=== PATIENT | female | born 1965 | race African-American/Black ===

== ENCOUNTER 2017-05-03 17:07 | Inpatient (IN) | payer OTHER ==
[2017-05-03] MEDS ORDERED: SODIUM CHLORIDE 1,000 ML IV STA (17:42)
[2017-05-03] MEDS ORDERED: ACETAMINOPHEN 1000 MG/100 ML VIAL (NON FORMULARY) IVPB ONE (17:45)
[2017-05-03] MEDS ORDERED: VANCOMYCIN 1,000 MG in DEXTROSE 5%-WATER - 250 ML IVPB ONE (17:47)
--- NOTE | 2017-05-03 17:53 | PDOC ---
History of Present Illness - General Chief Complaint: Abscess Boil Stated Complaint: PCP SENT Time Seen by Provider: 05/03/17 17:33 History Source: Patient Exam Limitations: No Limitations - History of Present Illness Initial Comments: 05/03/17 17:51 52-year-old female presents to the ED with complaints of worsening right upper abdominal abscess which she states started earlier this week and has progressively gotten worse in the point that she has a fever and has pain with movement. Patient states was told by her PCP Dr. Isai Parham to come to the ER. Patient denies history of diabetes but does state history of gastric bypass in 2000.. Patient states the bump was over the incision which she denies manipulation or irritation of. Patient denies radiation of pain, change in bowel pattern, chest pain, shortness of breath. Timing/Duration: getting worse Severity: moderate Associated Symptoms: reports: fever/chills Past History - Travel Traveled outside of the country in the last 30 days: No - Past Medical History Allergies/Adverse Reactions: Allergies Allergy/AdvReac Type Severity Reaction Status Date / Time tree nut Allergy Severe Hives Verified 05/03/17 17:13 No Known Drug Allergies Allergy Verified 05/03/17 17:13 fish Allergy Severe Hives Uncoded 05/03/17 17:13 Home Medications: Ambulatory Orders Rizatriptan Benzoate [Maxalt] 10 mg PO PRN #0 tablet 10/30/11 Amlodipine Besylate [Norvasc -] 10 mg PO DAILY 06/23/12 Benazepril HCl 20 mg PO DAILY 06/23/12 Oxycodone HCl/Acetaminophen [Percocet 5-325 mg Tablet] 1 - 2 tab PO Q6H PRN #12 tablet 08/04/12 Albuterol 0.083% Nebulizer Suellen [Ventolin 0.083% Nebulizer Soln -] 1 neb NEB Q4H PRN 10/31/15 Albuterol Sulfate Inhaler - [Ventolin HFA Inhaler -] 2 inh PO Q4H PRN 10/31/15 Biotin 1 mg PO BID 10/31/15 Buspirone HCl [Buspar -] 30 mg PO BID 10/31/15 Butalb/Acetaminophen/Caffeine [Bhjuac-Prvakaox-Yonx 50-325-40] 1 each PO ASDIR PRN 10/31/15 Calcium Carbonate/Vitamin D3 [Calcium 600-Vit D3 200 Tablet] 1 each PO BID 10/30 Cetirizine HCl 10 mg PO DAILY 10/31/15 Cyclobenzaprine HCl [Flexeril -] 5 mg PO TID PRN 10/31/15 Diclofenac Sodium 100 gm TP BID 10/31/15 Diphenhydramine HCl [Benadryl Capsule -] 25 mg PO BID PRN 10/31/15 Hydrochlorothiazide [Hctz -] 25 mg PO DAILY 10/31/15 Losartan Potassium [Cozaar -] 50 mg PO DAILY 10/31/15 Montelukast Na [Singulair -] 10 mg PO HS 10/31/15 Topiramate 50 mg PO BID 10/31/15 Trazodone HCl [Desyrel -] 50 mg PO TID 10/31/15 Famotidine [Pepcid] 20 mg PO BID #60 tablet 01/04/16 Oxycodone HCl/Acetaminophen [Percocet 5-325 mg Tablet] 1 - 2 tab PO Q6H #20 tab MDD 4 01/04/16 Anemia: Yes Asthma: Yes (USES INHALERS) Cancer: No Cardiac Disorders: No CVA: No COPD: Yes CHF: No Dementia: No Diabetes: No GI Disorders: No Disorders: No HTN: Yes Hypercholesterolemia: No Liver Disease: No Seizures: No Thyroid Disease: No - Surgical History Abdominal Surgery: Yes (GASTRIC BY-PASS 2000) Appendectomy: No Cardiac Surgery: No Cholecystectomy: No Lung Surgery: No Neurologic Surgery: No Orthopedic Surgery: No - Immunization History Td Vaccination: Yes TDAP Vaccination: Yes Immunization Up to Date: Yes - Suicide/Smoking/Psychosocial Hx Smoking Status: No Smoking History: Never smoked Years of Tobacco Use: 0 Have you smoked in the past 12 months: No Number of Cigarettes Smoked Daily: 0 Cigars Per Day: 0 Information on smoking cessation initiated: No Hx Alcohol Use: No Drug/Substance Use Hx: No Substance Use Type: None Hx Substance Use Treatment: No Patient Lives Alone: No Lives with/in: spouse/SO Review of Systems - Review of Systems Able to Perform ROS?: Yes Constitutional: Yes: Chills, Fever, Weakness HEENTM: No: Symptoms Reported Respiratory: No: Symptoms reported Cardiac (ROS): No: Symptoms Reported ABD/GI: Yes: Abdominal Distended. No: Nausea : No: Symptoms Reported Musculoskeletal: No: Symptoms Reported Integumentary: Yes: Erythema, Lumps Neurological: No: Symptoms reported Endocrine: No: Symptoms Reported Hematologic/Lymphatic: No: Symptoms Reported *Physical Exam - Vital Signs Last Vital Signs Temp Pulse Resp BP Pulse Ox 100.6 F H 100 H 16 171/93 99 05/03/17 17:13 05/03/17 17:13 05/03/17 17:13 05/03/17 17:13 05/03/17 17:13 - Physical Exam General Appearance: Yes: Nourished, Appropriately Dressed. No: Apparent Distress HEENT: positive: EOMI, Pharynx Normal. negative: Pale Conjunctivae Neck: positive: Supple Respiratory/Chest: positive: Lungs Clear, Normal Breath Sounds. negative: Respiratory Distress, Accessory Muscle Use Cardiovascular: positive: Regular Rhythm, Tachycardia. negative: Murmur Gastrointestinal/Abdominal: positive: Normal Bowel Sounds, Other (Noted 3 cm raised fluctuant warm erythematous mass to the right upper quadrant and surrounding skin erythematous measuring 10 x 12 cm. No drainage noted from Center mass. ) Integumentary: positive: Erythema, Swelling Neurologic: positive: Motor Strength 5/5 (ambulatory) ED Treatment Course - LABORATORY CBC & Chemistry Diagram: 05/03/17 18:10 05/03/17 18:10 - RADIOLOGY Radiology Studies Ordered: Category Date Time Status ABDOMEN & PELVIS CT WITH CONTR [CT] Stat CT Scan 05/03/17 17:45 Ordered CHEST X-RAY PORTABLE* [RAD] Stat Radiology 05/03/17 17:42 Ordered Medical Decision Making - Medical Decision Making 05/03/17 17:56 Patient here for evaluation of worsening cellulitic tender mass to the right upper quadrant. Patient exam and arrival was found to be tachycardic and febrile concerning for sepsis. Patient with noted fluctuant masses center of right upper abdomen and unable to detectthe extent of abscess/mass. patient also ordered for IV Tylenol abdominal CT with by mouth and IV contrast along with surgical consult. Patient ordered for vancomycin and Zosyn for broad- spectrum coverage. 05/03/17 18:[address] Moore and is requesting Dr. Geoffrey Joseph for surgical consultation. *DC/Admit/Observation/Transfer Diagnosis at time of Disposition: Abdominal abscess, Sepsis - Discharge Dispostion Admit: Yes - Referrals - Patient Instructions - Post Discharge Activity
[2017-05-03] MEDS ORDERED: PIPERACILLIN/TAZOB 3.375 GM 3.375 GM in DEXTROSE 5%-WATER - 50 ML IVPB SCH (18:00)
[2017-05-03] MEDS ORDERED: VANCOMYCIN 1 GRAM (PRE-DOCKED) 1,000 MG/250 ML BAG IVPB ONE (18:19)
[2017-05-03] MEDS ORDERED: ACETAMINOPHEN INJECTION 100 ML IVPB ONE (18:19)
[2017-05-03] MEDS ORDERED: PIPERACILLIN/TAZOB 3.375 GM 3.375 GM/50 ML BAG IVPB ONE (18:20)
[2017-05-03 18:26] LABS: BASO % 0.4 % (0-2.0); EOS % 1.1 % (0-4.5); HEMATOCRIT 35.7 % (32.4-45.2); HEMOGLOBIN 11.6 GM/dL (10.7-15.3); LYMPH % 9.4 % (8-40); MCHC 32.4 g/dl (32.0-36.0); MEAN CELL VOLUME 86.6 fl (80-96); MEAN PLT VOLUME 8.5 fl (7.5-11.1); MONO % 12.5 % (3.8-10.2); NEUT % 76.6 % (42.8-82.8); PLATELET COUNT 290 K/MM3 (134-434); RBC 4.13 M/mm3 (3.60-5.2); RDW 13.5 % (11.6-15.6); WHITE BLOOD COUNT 11.1 K/mm3 (4.0-10.0)
[2017-05-03] MEDS ORDERED: LACTATED RINGERS SOLUTION 1000 ML INFUS.BAG IV ONE (18:30)
[2017-05-03 18:41] LABS: INR 1.24 (0.82-1.09)
[2017-05-03 18:44] LABS: ACTIVATED PTT 28.3 SECONDS (26.9-34.4)
[2017-05-03 18:55] LABS: URINE APPEARANCE CLEAR; URINE BILIRUBIN NEGATIVE (NEGATIVE); URINE BLOOD NEGATIVE (NEGATIVE); URINE COLOR LTYELLOW; URINE GLUCOSE (UA) NEGATIVE (NEGATIVE); URINE KETONE TRACE (NEGATIVE); URINE LEUK ESTERASE NEGATIVE (NEGATIVE); URINE NITRITE NEGATIVE (NEGATIVE); URINE PROTEIN NEGATIVE (NEGATIVE); URINE UROBILINOGEN 4.0 E.U/dl mg/dL (0.2-1.0)
--- NOTE | 2017-05-03 19:12 | PDOC ---
*Physical Exam - Vital Signs Last Vital Signs Temp Pulse Resp BP Pulse Ox 100.6 F H 100 H 16 171/93 99 05/03/17 17:13 05/03/17 17:13 05/03/17 17:13 05/03/17 17:13 05/03/17 17:13 ED Treatment Course - LABORATORY CBC & Chemistry Diagram: 05/03/17 18:10 05/03/17 18:10 - ADDITIONAL ORDERS Additional order review: Laboratory Results 05/03/17 05/03/17 05/03/17 18:10 18:10 18:10 PT with INR INR PTT (Actin FS) Sodium Cancelled Potassium Cancelled Chloride Cancelled Carbon Dioxide Cancelled Anion Gap Cancelled BUN Cancelled Creatinine Cancelled Creat Clearance w eGFR Cancelled Random Glucose Cancelled Lactic Acid 1.0 Calcium Cancelled Total Bilirubin Cancelled AST Cancelled ALT Cancelled Alkaline Phosphatase Cancelled Creatine Kinase Cancelled Troponin I Cancelled Total Protein Cancelled Albumin Cancelled Blood Type Cancelled Antibody Screen Cancelled 05/03/17 18:10 PT with INR 14.00 H INR 1.24 H PTT (Actin FS) 28.3 Sodium Potassium Chloride Carbon Dioxide Anion Gap BUN Creatinine Creat Clearance w eGFR Random Glucose Lactic Acid Calcium Total Bilirubin AST ALT Alkaline Phosphatase Creatine Kinase Troponin I Total Protein Albumin Blood Type Antibody Screen 05/03/17 18:10 RBC 4.13 MCV 86.6 MCHC 32.4 RDW 13.5 D MPV 8.5 Neutrophils % 76.6 Lymphocytes % 9.4 D Monocytes % 12.5 H D Eosinophils % 1.1 D Basophils % 0.4 - Medications Given in the ED: ED Medications Discontinued Medications Generic Name Dose Route Start Last Admin Trade Name Kishan PRN Reason Stop Dose Admin Acetaminophen 1,000 mg 05/03/17 17:45 05/03/17 18:20 Ofirmev Injection - IVPB 05/03/17 17:46 1,000 mg ONCE ONE Administration Sodium Chloride 1,000 mls @ 1,000 mls/hr 05/03/17 17:42 05/03/17 19:06 Normal Saline - IV 05/03/17 18:41 Not Given ASDIR STA Vancomycin HCl 1,000 mg/ 250 mls @ 250 mls/hr 05/03/17 17:47 05/03/17 19:08 Dextrose IVPB 05/03/17 18:46 250 mls/hr ONCE ONE Administration Protocol Lactated Ringer's 1,000 ml 05/03/17 18:30 05/03/17 19:07 Lactated Ringers Solution IV 05/03/17 18:31 1,000 ml ONCE ONE Administration Medical Decision Making - Medical Decision Making 05/03/17 19:12 Pt seen by the Advanced Practice Provider under my direct supervision Ancillary studies reviewed I agree with plan as outlined by the Advanced Practice Provider *DC/Admit/Observation/Transfer Diagnosis at time of Disposition: Abdominal abscess, Sepsis - Referrals Referrals: Isai Parham MD [Primary Care Provider] - - Patient Instructions - Post Discharge Activity
[2017-05-03 20:02] LABS: ALBUMIN 2.9 g/dl (3.4-5.0); ANION GAP 8 (8-16); BILIRUBIN,TOTAL 0.4 mg/dL (0.2-1.0); BLOOD UREA NITROGEN 19 mg/dL (7-18); CALCIUM 8.1 mg/dL (8.5-10.1); CHLORIDE 98 mmol/L (98-107); CO2 27 mmol/L (21-32); CREATININE 1.6 mg/dL (0.55-1.02); GLUCOSE,RANDOM 99 mg/dL (74-106); POTASSIUM 3.4 mmol/L (3.5-5.1); SGOT/AST 19 U/L (15-37); SGPT/ALT 24 U/L (12-78); SODIUM 133 mmol/L (136-145); TOT PROT 7.2 g/dl (6.4-8.2)
[2017-05-03 20:04] LABS: ALK PHOS 97 U/L (45-117)
[2017-05-03 21:06] LABS: VENOUS PC02 47.1 mmHg (38-52); VENOUS PH 7.38 (7.32-7.42); VENOUS PO2 31.3 mmHg (28-48)
[2017-05-04] MEDS ORDERED: ACETAMINOPHEN 325 MG TABLET (FP) PO PRN (02:19)
[2017-05-04] MEDS ORDERED: oxyCODONE HCL 5 MG TABLET PO PRN (02:19)
[2017-05-04] MEDS ORDERED: PIPERACILLIN/TAZOB 2.25 GM 2.25 GM/50 ML BAG IVPB ONE (03:15)
[2017-05-04 04:04] VITALS: BMI 57.0
[2017-05-04] MEDS ORDERED: oxyCODONE HCL 5 MG TABLET PO ONE (05:00)
[2017-05-04] MEDS ORDERED: TOPIRAMATE 25 MG TABLET (FP) PO ONE (05:00)
[2017-05-04 08:31] LABS: BASO % 0.5 % (0-2.0); EOS % 1.2 % (0-4.5); HEMOGLOBIN 11.5 GM/dL (10.7-15.3); LYMPH % 12.2 % (8-40); MCH 28.4 pg (25.7-33.7); MCHC 32.9 g/dl (32.0-36.0); MEAN CELL VOLUME 86.1 fl (80-96); MEAN PLT VOLUME 8.1 fl (7.5-11.1); MONO % 12.5 % (3.8-10.2); NEUT % 73.6 % (42.8-82.8); PLATELET COUNT 294 K/MM3 (134-434); RBC 4.06 M/mm3 (3.60-5.2); RDW 13.5 % (11.6-15.6); WHITE BLOOD COUNT 10.9 K/mm3 (4.0-10.0)
[2017-05-04] MEDS: oxyCODONE HCL 5 MG TABLET PO PRN ×3 (10:55→23:20)
[2017-05-04] MEDS: ACETAMINOPHEN 325 MG TABLET (FP) PO PRN ×3 (10:57→23:21)
[2017-05-04] MEDS: LISINOPRIL 20 MG TABLET (FP) PO SCH (10:57)
[2017-05-04] MEDS: amLODIPine BESYLATE 10 MG TABLET (FP) PO SCH (10:57)
[2017-05-04] MEDS: LOSARTAN POTASSIUM 50 MG TABLET (FP) PO SCH (10:58)
[2017-05-04] MEDS: FUROSEMIDE 40 MG TABLET (FP) PO SCH (10:58)
[2017-05-04] MEDS: HEPARIN NA (PORCINE) 5,000 UNITS/ML 1ML VIAL SQ SCH ×2 (10:58→23:01)
--- NOTE | 2017-05-04 12:07 | HP ---
Admitting History and Physical - Admission History of Present Illness: Pt is a morbidly obese 52 y/o female w/ PMH significant HTN, copd and gastric bypass in 2000. Pt has noticed at site of surgical scar mass since 04/22/17wc has progressively increased in size, pain and redness. However in the last few days these symptoms have progressed and yesterday noticed ?low grade temp and bodyaches. - Past Medical History Cardiovascular: Yes: HTN Pulmonary: Yes: COPD ...LMP: 05/06/12 - Past Surgical History Additional Past Surgical History: Gastric Bypass - Smoking History Smoking history: Never smoked Have you smoked in the past 12 months: No Aproximately how many cigarettes per day: 0 - Alcohol/Substance Use Hx Alcohol Use: No Home Medications - Allergies Allergies/Adverse Reactions: Allergies Allergy/AdvReac Type Severity Reaction Status Date / Time tree nut Allergy Severe Hives Verified 05/03/17 17:13 No Known Drug Allergies Allergy Verified 05/03/17 17:13 fish Allergy Severe Hives Uncoded 05/03/17 17:13 - Home Medications Home Medications: Ambulatory Orders Rizatriptan Benzoate [Maxalt] 10 mg PO PRN #0 tablet 10/30/11 Amlodipine Besylate [Norvasc -] 10 mg PO DAILY 06/23/12 Benazepril HCl 20 mg PO DAILY 06/23/12 Oxycodone HCl/Acetaminophen [Percocet 5-325 mg Tablet] 1 - 2 tab PO Q6H PRN #12 tablet 08/04/12 Albuterol 0.083% Nebulizer Suellen [Ventolin 0.083% Nebulizer Soln -] 1 neb NEB Q4H PRN 10/31/15 Albuterol Sulfate Inhaler - [Ventolin HFA Inhaler -] 2 inh PO Q4H PRN 10/31/15 Biotin 1 mg PO BID 10/31/15 Cyclobenzaprine HCl [Flexeril -] 5 mg PO TID PRN 10/31/15 Losartan Potassium [Cozaar -] 50 mg PO DAILY 10/31/15 Topiramate 50 mg PO BID 10/31/15 Oxycodone HCl/Acetaminophen [Percocet 5-325 mg Tablet] 1 - 2 tab PO Q6H #20 tab MDD 4 01/04/16 Furosemide [Lasix] 40 mg PO DAILY 05/03/17 Family Disease History - Family Disease History Family History: Unremarkable Review of Systems - Review of Systems Constitutional: reports: Fever Eyes: reports: No Symptoms HENT: reports: No Symptoms Neck: reports: No Symptoms Cardiovascular: reports: No Symptoms Respiratory: reports: No Symptoms Gastrointestinal: reports: Abdominal Pain Genitourinary: reports: No Symptoms Neurological: reports: No Symptoms Physical Examination Vital Signs: Vital Signs Temperature 100.8 F H 05/04/17 10:00 Pulse Rate 96 H 05/04/17 10:00 Respiratory Rate 18 05/04/17 10:00 Blood Pressure 126/73 05/04/17 10:00 O2 Sat by Pulse Oximetry (%) 98 05/03/17 22:00 Constitutional: Yes: Well Nourished, Obese Eyes: Yes: WNL HENT: Yes: WNL Neck: Yes: WNL, Supple Cardiovascular: Yes: WNL, Regular Rate and Rhythm Respiratory: Yes: WNL, Regular, CTA Bilaterally Gastrointestinal: Yes: Normal Bowel Sounds, Abdomen, Obese, Other ((+) indurated mass wc is fluctant w/ surrounding erythema/warmth) Extremities: Yes: WNL Edema: No Neurological: Yes: WNL, Alert, Oriented ...Motor Strength: WNL Labs: CBC, BMP 05/04/17 08:00 05/03/17 18:50 Problem List - Problems (1) Abdominal abscess Assessment/Plan: Cont Iv zosyn/IV Vnaco Follow cultures ID/Surgical consults noted Pt for OR in am for I&D Code(s): [id number] - (2) Cellulitis Assessment/Plan: Cont IV antibxs Wound care Code(s): L03.90 - CELLULITIS, UNSPECIFIED (3) HTN (hypertension) Assessment/Plan: BP stable Cont norvasc/lasix/lisinopril/losartan Code(s): I10 - ESSENTIAL (PRIMARY) HYPERTENSION (4) Morbid obesity Code(s): E66.01 - MORBID (SEVERE) OBESITY DUE TO EXCESS CALORIES (5) COPD (chronic obstructive pulmonary disease) Code(s): J44.9 - CHRONIC OBSTRUCTIVE PULMONARY DISEASE, UNSPECIFIED
--- NOTE | 2017-05-04 12:25 | CON.ID ---
Consult - History of Present Illness History of Present Illness: This is a 52 y.o. female with PMH of obesity s/p gastric bypass in 2000 presents with c/o abd wall induration and tenderness which has been increasing since first started noticing pain at site on 04/22/17 as per pt. 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 She also states she has been having subjective fever/chills. Today she has started to have copious malodorous, brownish oozing from the site. - History Source History Provided By: Patient Limitations to Obtaining History: No Limitations - Past Medical History Cardio/Vascular: Yes: HTN Pulmonary: Yes: COPD ...LMP: 05/06/12 Infectious Disease: Yes: MRSA (isolated from rt axilla and nares) - Past Surgical History Past Surgical History: Yes: Bariatric Surgery - Alcohol/Substance Use Hx Alcohol Use: No - Smoking History Smoking history: Never smoked Have you smoked in the past 12 months: No Aproximately how many cigarettes per day: 0 - Social History Usual Living Arrangement: Other (with family) History of Recent Travel: No Home Medications - Allergies Allergies/Adverse Reactions: Allergies Allergy/AdvReac Type Severity Reaction Status Date / Time tree nut Allergy Severe Hives Verified 05/03/17 17:13 No Known Drug Allergies Allergy Verified 05/03/17 17:13 fish Allergy Severe Hives Uncoded 05/03/17 17:13 - Home Medications Home Medications: Ambulatory Orders Rizatriptan Benzoate [Maxalt] 10 mg PO PRN #0 tablet 10/30/11 Amlodipine Besylate [Norvasc -] 10 mg PO DAILY 06/23/12 Benazepril HCl 20 mg PO DAILY 06/23/12 Oxycodone HCl/Acetaminophen [Percocet 5-325 mg Tablet] 1 - 2 tab PO Q6H PRN #12 tablet 08/04/12 Albuterol 0.083% Nebulizer Suellen [Ventolin 0.083% Nebulizer Soln -] 1 neb NEB Q4H PRN 10/31/15 Albuterol Sulfate Inhaler - [Ventolin HFA Inhaler -] 2 inh PO Q4H PRN 10/31/15 Biotin 1 mg PO BID 10/31/15 Cyclobenzaprine HCl [Flexeril -] 5 mg PO TID PRN 10/31/15 Losartan Potassium [Cozaar -] 50 mg PO DAILY 10/31/15 Topiramate 50 mg PO BID 10/31/15 Oxycodone HCl/Acetaminophen [Percocet 5-325 mg Tablet] 1 - 2 tab PO Q6H #20 tab MDD 4 01/04/16 Furosemide [Lasix] 40 mg PO DAILY 05/03/17 Review of Systems - Review of Systems Constitutional: reports: Fever Eyes: reports: No Symptoms HENT: reports: No Symptoms Neck: reports: No Symptoms Cardiovascular: reports: No Symptoms Respiratory: reports: No Symptoms Gastrointestinal: reports: No Symptoms Genitourinary: reports: No Symptoms Breasts: reports: No Symptoms Reported Musculoskeletal: reports: No Symptoms Integumentary: reports: Lump (tender, indurated collection in Rt upper abdominal wall) Neurological: reports: No Symptoms Endocrine: reports: No Symptoms Hematology/Lymphatic: reports: No Symptoms Psychiatric: reports: No Symptoms Physical Exam Vital Signs: Vital Signs Temperature 100.8 F H 05/04/17 10:00 Pulse Rate 96 H 05/04/17 10:00 Respiratory Rate 18 05/04/17 10:00 Blood Pressure 126/73 05/04/17 10:00 O2 Sat by Pulse Oximetry (%) 98 05/03/17 22:00 Constitutional: Yes: No Distress, Calm Eyes: Yes: WNL HENT: Yes: WNL Neck: Yes: WNL Cardiovascular: Yes: Regular Rate and Rhythm Respiratory: Yes: Regular Gastrointestinal: Yes: Normal Bowel Sounds, Soft, Abdomen, Obese, Tenderness ( wall tenderness) Renal/: Yes: WNL Extremities: Yes: WNL Integumentary: Yes: Erythema Wound/Incision: Yes: Draining Neurological: Yes: Alert, Oriented Labs: CBC, BMP 05/04/17 08:00 05/03/17 18:50 Abnormal Lab Results 05/03/17 05/03/17 05/03/17 18:10 18:10 18:40 WBC 11.1 H Monocytes % 12.5 H D PT with INR 14.00 H INR 1.24 H Mixed VBG HCO3 Sodium Potassium BUN Creatinine Calcium Creatine Kinase Albumin Urine Ketones Trace H Urine Urobilinogen 4.0 e.u/dl H 05/03/17 05/03/17 05/04/17 18:50 20:55 08:00 WBC 10.9 H Monocytes % 12.5 H PT with INR INR Mixed VBG HCO3 27.2 H Sodium 133 L Potassium 3.4 L BUN 19 H Creatinine 1.6 H Calcium 8.1 L Creatine Kinase 266 H Albumin 2.9 L Urine Ketones Urine Urobilinogen Imaging - Results Cat Scan: Pending Problem List - Problems (1) Abdominal abscess Code(s): SQS3919 - Assessment/Plan 52 y.o. female with undurated lesion/tenderness/malodorous drainage in Rt upper abd wall with reported previous MRSA isolation Abd wall Abscess ? CKD obesity -- continue Zosyn/Vancomycin -- surgery to evaluate -- wound culture taken -- f/u blood cultures -- monitor renal function -- f/u Abd CT -- dressing changes Thank you
--- NOTE | 2017-05-04 12:27 | EKG ---
Test Reason : Blood Pressure : / mmHG Vent. Rate : 094 BPM Atrial Rate : 094 BPM P-R Int : 134 ms QRS Dur : 088 ms QT Int : 368 ms P-R-T Axes : 067 001 061 degrees QTc Int : 460 ms NORMAL SINUS RHYTHM MINIMAL VOLTAGE CRITERIA FOR LVH, MAY BE NORMAL VARIANT ABNORMAL ECG WHEN COMPARED WITH ECG OF 04-AUG-2012 08:19, NOTE ERROR IN LEAD V4, RECOMMEND REPEAT Confirmed by ZARA LEVY, WESTLEY ([id number]) on 05/04/2017 12:27:18 PM Referred By: Confirmed By:WESTLEY ZUÑIGA MD
[2017-05-04] MEDS ORDERED: LIDOCAINE HCL 1%, 10 MG/ML (20ML VIAL) ONE (13:32)
--- NOTE | 2017-05-04 14:13 | CONSULT ---
Consult Consult Specialty:: Surgery Referred by:: Dr. Moore Reason for Consultation:: abdominal wall abscess - History of Present Illness Chief Complaint: abdominal wall fluctuant mass History of Present Illness: 52-year-old female presents to the ED with complaints of worsening right upper abdominal wall fluctuant mass which she states started earlier this week and has progressively gotten worse in the point that she has a fever and has pain with movement. Patient states was told by her PCP Dr. Isai Parham to come to the ER. Patient denies history of diabetes but does state history of gastric banding in 2000. Had removal of the band and port in 2016 for slippage or the band. Patient states the bump was over the incision. Patient denies radiation of pain, change in bowel pattern, chest pain, shortness of breath. Noted spontaneous drainage of copious purulent foul smelling fluid today. About 250 cc of fluid suction drained and sample sent for fluid c/s. - History Source History Provided By: Patient Limitations to Obtaining History: No Limitations - Past Medical History Cardio/Vascular: Yes: HTN Pulmonary: Yes: COPD ...LMP: 05/06/12 Infectious Disease: Yes: MRSA (isolated from rt axilla and nares) Additional Medical History: Morbid obesity - Past Surgical History Past Surgical History: Yes: Bariatric Surgery (gastric banding) - Alcohol/Substance Use Hx Alcohol Use: No - Smoking History Smoking history: Never smoked Have you smoked in the past 12 months: No Aproximately how many cigarettes per day: 0 - Social History Usual Living Arrangement: Other (with family) History of Recent Travel: No Home Medications - Allergies Allergies/Adverse Reactions: Allergies Allergy/AdvReac Type Severity Reaction Status Date / Time tree nut Allergy Severe Hives Verified 05/03/17 17:13 No Known Drug Allergies Allergy Verified 05/03/17 17:13 fish Allergy Severe Hives Uncoded 05/03/17 17:13 - Home Medications Home Medications: Ambulatory Orders Rizatriptan Benzoate [Maxalt] 10 mg PO PRN #0 tablet 10/30/11 Amlodipine Besylate [Norvasc -] 10 mg PO DAILY 06/23/12 Benazepril HCl 20 mg PO DAILY 06/23/12 Oxycodone HCl/Acetaminophen [Percocet 5-325 mg Tablet] 1 - 2 tab PO Q6H PRN #12 tablet 08/04/12 Albuterol 0.083% Nebulizer Suellen [Ventolin 0.083% Nebulizer Soln -] 1 neb NEB Q4H PRN 10/31/15 Albuterol Sulfate Inhaler - [Ventolin HFA Inhaler -] 2 inh PO Q4H PRN 10/31/15 Biotin 1 mg PO BID 10/31/15 Cyclobenzaprine HCl [Flexeril -] 5 mg PO TID PRN 10/31/15 Losartan Potassium [Cozaar -] 50 mg PO DAILY 10/31/15 Topiramate 50 mg PO BID 10/31/15 Oxycodone HCl/Acetaminophen [Percocet 5-325 mg Tablet] 1 - 2 tab PO Q6H #20 tab MDD 4 01/04/16 Furosemide [Lasix] 40 mg PO DAILY 05/03/17 Review of Systems - Review of Systems Constitutional: reports: Fever Eyes: reports: No Symptoms HENT: reports: No Symptoms Neck: reports: No Symptoms Cardiovascular: reports: No Symptoms Respiratory: reports: No Symptoms Gastrointestinal: reports: Abdominal Pain Pain Intensity: 7 Physical Exam Vital Signs: Vital Signs Temperature 100.8 F H 05/04/17 10:00 Pulse Rate 96 H 05/04/17 10:00 Respiratory Rate 18 05/04/17 10:00 Blood Pressure 126/73 05/04/17 10:00 O2 Sat by Pulse Oximetry (%) 98 05/03/17 22:00 Constitutional: Yes: Obese Eyes: Yes: WNL HENT: Yes: Normocephalic Neck: Yes: Supple Cardiovascular: Yes: Regular Rate and Rhythm Respiratory: Yes: CTA Bilaterally Gastrointestinal: Yes: Abdomen, Obese, Tenderness (fluctuant mass with purulent discharge at RUQ (port site), 5 x 4 cm with 2 cm opening) ...Rectal Exam: Yes: Deferred Labs: CBC, BMP 05/04/17 08:00 05/03/17 18:50 Imaging - Results Cat Scan: Report Reviewed, Image Reviewed Problem List - Problems (1) Abdominal abscess Assessment/Plan: continue IV antibiotics for I & D of abdominal wall abscess under GA in am. Code(s): [id number] -
[2017-05-04] MEDS: VANCOMYCIN 1,250 MG in DEXTROSE 5%-WATER - 250 ML IVPB SCH (14:21)
[2017-05-04] MEDS: PIPERACILLIN/TAZOB 3.375 GM 3.375 GM in DEXTROSE 5%-WATER - 100 ML IVPB SCH ×2 (14:21→23:01)
[2017-05-04] MEDS: TOPIRAMATE 25 MG TABLET (FP) PO SCH (23:01)
[2017-05-05] MEDS: VANCOMYCIN 1,250 MG in DEXTROSE 5%-WATER - 250 ML IVPB SCH ×2 (02:30→14:53)
[2017-05-05] MEDS ORDERED: PT OWN MED DRAWER 7, Y5N ONE ×3 (02:59→16:09)
[2017-05-05] MEDS: PIPERACILLIN/TAZOB 3.375 GM 3.375 GM in DEXTROSE 5%-WATER - 100 ML IVPB SCH ×5 (03:24→21:06)
[2017-05-05] MEDS ORDERED: MIDAZOLAM HCL 2 MG/2 ML SINGLE DOSE VIAL ONE (08:27)
[2017-05-05] MEDS ORDERED: PROPOFOL 20 ML ONE (08:27)
[2017-05-05] MEDS ORDERED: SUCCINYLCHOLINE CHLORIDE 200 MG/10 ML VIAL ONE (08:27)
[2017-05-05 08:45] LABS: BASO % 0.7 % (0-2.0); EOS % 2.2 % (0-4.5); HEMOGLOBIN 11.2 GM/dL (10.7-15.3); LYMPH % 15.4 % (8-40); MCH 27.8 pg (25.7-33.7); MCHC 32.1 g/dl (32.0-36.0); MEAN CELL VOLUME 86.7 fl (80-96); MEAN PLT VOLUME 8.4 fl (7.5-11.1); MONO % 12.7 % (3.8-10.2); PLATELET COUNT 323 K/MM3 (134-434); RBC 4.04 M/mm3 (3.60-5.2); RDW 13.8 % (11.6-15.6); WHITE BLOOD COUNT 10.5 K/mm3 (4.0-10.0)
[2017-05-05 09:09] LABS: ALBUMIN 2.5 g/dl (3.4-5.0); ANION GAP 9 (8-16); BLOOD UREA NITROGEN 21 mg/dL (7-18); CALCIUM 8.9 mg/dL (8.5-10.1); CHLORIDE 98 mmol/L (98-107); CO2 30 mmol/L (21-32); CREATININE 1.8 mg/dL (0.55-1.02); GLUCOSE,RANDOM 97 mg/dL (74-106); POTASSIUM 3.9 mmol/L (3.5-5.1); SGOT/AST 15 U/L (15-37); SGPT/ALT 20 U/L (12-78); SODIUM 137 mmol/L (136-145)
[2017-05-05 09:11] LABS: ALK PHOS 93 U/L (45-117); BILIRUBIN,TOTAL 0.4 mg/dL (0.2-1.0); TOT PROT 6.7 g/dl (6.4-8.2)
[2017-05-05] MEDS ORDERED: DEXAMETHASONE SOD PHOSPHATE 4 MG/1 ML VIAL ONE (09:17)
--- NOTE | 2017-05-05 09:45 | OP ---
Operative Note - Note: Operative Date: 05/05/17 Pre-Operative Diagnosis: Abdominal wall abscess Operation: I & D abdominal wall abscess and excisional debridement of necrotizing soft tissue infection Findings: 10 x 10 cm loculated abdominal wall abscess from prior gastric band port site with necrotic subcutaneous tissue Post-Operative Diagnosis: Other (Abdominal wall abscess with necrotizing soft tissue infection) Surgeon: Geoffrey Joseph Anesthesia: General (LMA) Specimens Removed: necrotic subcutaneous tissue Estimated Blood Loss (mls): 30 Instrument used (Debridements only): scalpel blade # 10, Metzembaum scissors and forceps
[2017-05-05] MEDS ORDERED: ONDANSETRON 4 MG/2 ML VIAL IVPUSH PRN (09:49)
[2017-05-05] MEDS: LACTATED RINGERS SOLUTION 1,000 ML IV SCH ×2 (10:00→20:31)
[2017-05-05] MEDS: LOSARTAN POTASSIUM 50 MG TABLET (FP) PO SCH ×2 (10:57→13:07)
[2017-05-05] MEDS: HEPARIN NA (PORCINE) 5,000 UNITS/ML 1ML VIAL SQ SCH ×3 (10:57→21:07)
[2017-05-05] MEDS: FUROSEMIDE 40 MG TABLET (FP) PO SCH ×2 (10:58→13:07)
[2017-05-05] MEDS: amLODIPine BESYLATE 10 MG TABLET (FP) PO SCH ×2 (10:58→13:07)
[2017-05-05] MEDS: LISINOPRIL 20 MG TABLET (FP) PO SCH ×2 (10:58→13:07)
[2017-05-05] MEDS: TOPIRAMATE 25 MG TABLET (FP) PO SCH ×3 (10:58→21:06)
--- NOTE | 2017-05-05 12:08 | OP ---
DATE OF OPERATION: 05/05/2017 PROCEDURE: Incision and drainage of abdominal wall abscess and excisional debridement of necrotizing soft tissue infection. PREOPERATIVE DIAGNOSIS: abdominal wall abscess. POSTOPERATIVE DIAGNOSIS: Abdominal wall abscess with necrotizing soft tissue infection. SURGEON: Geoffrey Joseph MD ANESTHESIA: General by laryngeal mask airway. FINDINGS: This is a 52-year-old female with a history of gastric banding in 2004 and had removal of the gastric band due to slippage in 2016. After removal, the wound was left open to heal by secondary intention. The patient now presents with a 10-day history of abdominal wall pain, tenderness, and swelling and development of a fluctuant mass at the gastric band port site. On physical exam, the patient has a 10-cm x 10-cm fluctuant mass with 2-cm opening draining purulent fluid. Initial suction drainage of the abscess was done at the bedside, and the patient was advised completion of the incision and drainage and wound exploration under general anesthesia. Consent was obtained after discussing the risks, benefits, and alternatives of the procedure. DESCRIPTION OF PROCEDURE: The patient was brought to the operating room and placed in supine position, and general anesthesia by laryngeal mask airway was administered. The abdomen was prepped and draped in the usual sterile fashion. A 10-cm transverse incision over the fluctuant mass was made using scalpel blade No. 10. Dissection was carried down to the abscess cavity, and the abscess cavity was digitally explored to take down the loculation. A 14-cm x 10-cm loculated abscess cavity was noted. On further exploration, necrotic subcutaneous tissue was encountered, and this was sharply debrided using the Metzenbaum scissors and tooth forceps. The necrotic skin was also excised using the scalpel blade No. 10. After excisional debridement was done, the wound was copiously irrigated with 2 L of sterile normal saline using the pulse thermodynamics engineer until the return was clear. The wound was then packed with 2- inch iodoform strips then covered with pressure dressing. The patient was successfully extubated and transferred to the post anesthesia care unit in satisfactory condition. Estimated blood loss was about 30 mL. Wound class dirty. Sample of fluid was also sent for culture and sensitivity studies. The patient was already on antibiotics upon admission. John [id number] [facility]ITAL[facility]by
--- NOTE | 2017-05-05 12:30 | PN ---
Progress Note, Physician History of Present Illness: patient post op from drainage of abd wall abscess pain,otherwise feels better - Current Medication List Current Medications: Active Medications Acetaminophen (Tylenol -) 325 mg PO Q6H PRN PRN Reason: PAIN LEVEL 6-10 Amlodipine Besylate (Norvasc -) 10 mg PO DAILY [facility] Fentanyl (Sublimaze Injection -) 25 mcg IVPUSH [id number] PRN PRN Reason: PAIN-PACU ORDER X 4 DOSES ONLY Last Admin: 05/05/17 10:15 Dose: 25 mcg Furosemide (Lasix -) 40 mg PO DAILY [facility] Heparin Sodium (Porcine) (Heparin -) 5,000 unit SQ BID [facility] Last Admin: 05/05/17 12:09 Dose: Not Given Lactated Ringer's (Lactated Ringers Solution) 1,000 mls @ 125 mls/hr IV ASDIR [facility] Last Admin: 05/05/17 10:00 Dose: 125 mls/hr Vancomycin HCl 1,250 mg/ (Dextrose) 250 mls @ 166.667 mls/hr IVPB BID@0200, 1400 [facility] PRN Reason: Protocol Piperacillin Sod/Tazobactam (Sod 3.375 gm/ Dextrose) 100 mls @ 200 mls/hr IVPB Q6H-IV [facility] PRN Reason: Protocol Last Admin: 05/05/17 10:57 Dose: 200 mls/hr Lisinopril (Prinivil) 20 mg PO DAILY [facility] Losartan Potassium (Cozaar -) 50 mg PO DAILY [facility] Ondansetron HCl (Zofran Injection) 4 mg IVPUSH Q6H PRN PRN Reason: NAUSEA AND/OR VOMITING Oxycodone HCl (Roxicodone -) 10 mg PO Q6H PRN PRN Reason: PAIN LEVEL 6-10 Topiramate (Topamax -) 50 mg PO BID [facility] - Objective Vital Signs: Vital Signs Temperature 97.5 F L 05/05/17 11:16 Pulse Rate 74 05/05/17 11:16 Respiratory Rate 20 05/05/17 11:16 Blood Pressure 123/65 05/05/17 11:16 O2 Sat by Pulse Oximetry (%) 96 05/05/17 11:16 Constitutional: Yes: Calm, Mild Distress, Obese Cardiovascular: Yes: Regular Rate and Rhythm Respiratory: Yes: Regular, CTA Bilaterally Gastrointestinal: Yes: Soft Musculoskeletal: Yes: WNL Extremities: Yes: WNL Wound/Incision: Yes: Dressing Dry and Intact Neurological: Yes: Alert, Oriented Psychiatric: Yes: Alert, Oriented Labs: CBC, BMP 05/05/17 07:00 05/05/17 07:00 INR, PTT INR 1.24 (0.82-1.09) H 05/03/17 18:10 Assessment/Plan Problem List - Problems (1) Abdominal abscess Code(s): [id number] - (2) Cellulitis Code(s): L03.90 - CELLULITIS, UNSPECIFIED (3) HTN (hypertension) Code(s): I10 - ESSENTIAL (PRIMARY) HYPERTENSION (4) Morbid obesity Code(s): E66.01 - MORBID (SEVERE) OBESITY DUE TO EXCESS CALORIES (5) COPD (chronic obstructive pulmonary disease) Code(s): J44.9 - CHRONIC OBSTRUCTIVE PULMONARY DISEASE, UNSPECIFIED plan continue abx await for cx report wound care will see the wound once we open the dsg
[2017-05-05] MEDS: oxyCODONE HCL 5 MG TABLET PO PRN ×2 (13:09→21:33)
[2017-05-05] MEDS: ACETAMINOPHEN 325 MG TABLET (FP) PO PRN ×2 (13:10→21:34)
--- NOTE | 2017-05-05 20:21 | PN ---
Progress Note, Physician History of Present Illness: Pt tolerated procedure - Current Medication List Current Medications: Active Medications Acetaminophen (Tylenol -) 325 mg PO Q6H PRN PRN Reason: PAIN LEVEL 6-10 Last Admin: 05/05/17 13:10 Dose: 325 mg Amlodipine Besylate (Norvasc -) 10 mg PO DAILY [facility] Last Admin: 05/05/17 13:07 Dose: 10 mg Fentanyl (Sublimaze Injection -) 25 mcg IVPUSH [id number] PRN PRN Reason: PAIN-PACU ORDER X 4 DOSES ONLY Last Admin: 05/05/17 10:15 Dose: 25 mcg Furosemide (Lasix -) 40 mg PO DAILY [facility] Last Admin: 05/05/17 13:07 Dose: 40 mg Heparin Sodium (Porcine) (Heparin -) 5,000 unit SQ BID [facility] Last Admin: 05/05/17 12:09 Dose: Not Given Lactated Ringer's (Lactated Ringers Solution) 1,000 mls @ 125 mls/hr IV ASDIR [facility] Last Admin: 05/05/17 10:00 Dose: 125 mls/hr Vancomycin HCl 1,250 mg/ (Dextrose) 250 mls @ 166.667 mls/hr IVPB BID@0200, 1400 [facility] PRN Reason: Protocol Last Admin: 05/05/17 14:53 Dose: 166.667 mls/hr Piperacillin Sod/Tazobactam (Sod 3.375 gm/ Dextrose) 100 mls @ 200 mls/hr IVPB Q6H-IV [facility] PRN Reason: Protocol Last Admin: 05/05/17 17:37 Dose: 200 mls/hr Lisinopril (Prinivil) 20 mg PO DAILY [facility] Last Admin: 05/05/17 13:07 Dose: 20 mg Losartan Potassium (Cozaar -) 50 mg PO DAILY [facility] Last Admin: 05/05/17 13:07 Dose: 50 mg Ondansetron HCl (Zofran Injection) 4 mg IVPUSH Q6H PRN PRN Reason: NAUSEA AND/OR VOMITING Oxycodone HCl (Roxicodone -) 10 mg PO Q6H PRN PRN Reason: PAIN LEVEL 6-10 Last Admin: 05/05/17 13:09 Dose: 10 mg Topiramate (Topamax -) 50 mg PO BID [facility] Last Admin: 05/05/17 13:07 Dose: 50 mg - Objective Vital Signs: Vital Signs Temperature 97.9 F 05/05/17 19:00 Pulse Rate 88 05/05/17 19:00 Respiratory Rate 20 05/05/17 19:00 Blood Pressure 137/72 05/05/17 19:00 O2 Sat by Pulse Oximetry (%) 96 05/05/17 11:16 Constitutional: Yes: Well Nourished Cardiovascular: Yes: WNL, Regular Rate and Rhythm Respiratory: Yes: WNL, Regular, CTA Bilaterally Gastrointestinal: Yes: Soft, Abdomen, Obese, Other ((+)) Labs: CBC, BMP 05/05/17 07:00 05/05/17 07:00 INR, PTT INR 1.24 (0.82-1.09) H 05/03/17 18:10 Problem List - Problems (1) Abdominal abscess Code(s): MGJ1019 - (2) Cellulitis Code(s): L03.90 - CELLULITIS, UNSPECIFIED (3) HTN (hypertension) Code(s): I10 - ESSENTIAL (PRIMARY) HYPERTENSION (4) Morbid obesity Code(s): E66.01 - MORBID (SEVERE) OBESITY DUE TO EXCESS CALORIES (5) COPD (chronic obstructive pulmonary disease) Code(s): J44.9 - CHRONIC OBSTRUCTIVE PULMONARY DISEASE, UNSPECIFIED
[2017-05-06] MEDS: VANCOMYCIN 1,250 MG in DEXTROSE 5%-WATER - 250 ML IVPB SCH ×2 (01:13→13:15)
[2017-05-06] MEDS: PIPERACILLIN/TAZOB 3.375 GM 3.375 GM in DEXTROSE 5%-WATER - 100 ML IVPB SCH ×4 (03:14→20:56)
[2017-05-06] MEDS: oxyCODONE HCL 5 MG TABLET PO PRN ×3 (05:51→22:58)
[2017-05-06] MEDS: ACETAMINOPHEN 325 MG TABLET (FP) PO PRN ×3 (05:52→22:59)
[2017-05-06] MEDS ORDERED: PT OWN MED DRAWER 7, Y5N ONE ×2 (09:17→13:10)
[2017-05-06] MEDS: LOSARTAN POTASSIUM 50 MG TABLET (FP) PO SCH (09:59)
[2017-05-06] MEDS: FUROSEMIDE 40 MG TABLET (FP) PO SCH (09:59)
[2017-05-06] MEDS: amLODIPine BESYLATE 10 MG TABLET (FP) PO SCH (09:59)
[2017-05-06] MEDS: LISINOPRIL 20 MG TABLET (FP) PO SCH (09:59)
--- NOTE | 2017-05-06 10:02 | PN ---
Progress Note (short form) - Note Progress Note: Post op day#1.S/p I&D of abdominal wall under GA uneventful.Patient stable.No any anesthesia related problem.Patient DC from the anesthesia care.
[2017-05-06] MEDS: TOPIRAMATE 25 MG TABLET (FP) PO SCH ×2 (10:08→21:29)
[2017-05-06] MEDS: HEPARIN NA (PORCINE) 5,000 UNITS/ML 1ML VIAL SQ SCH ×2 (10:09→21:30)
[2017-05-06] MEDS: LACTATED RINGERS SOLUTION 1,000 ML IV SCH (10:40)
--- NOTE | 2017-05-06 13:29 | PATH ---
Surgical Pathology Report Patient Name: ALLYSSA TOM Med. Rec. #: [id number] /Age/Gender: 1965 (Age: 52) / F Account: [id number] Location: [address] [place] [address]/[facility] Taken: 05/05/2017 Received: 05/05/2017 Reported: 05/06/2017 Physicians: John Hernandez M.D. Specimen(s) Received DEBRIDEMENT TISSUE Clinical History Abscess abdominal wall Final Diagnosis ABDOMINAL WALL, TISSUE, ABSCESS, DEBRIDEMENT:SKIN AND SOFT TISSUE WITH MARKED ACUTE AND CHRONIC NECROTIZING INFLAMMATION AND GRANULATION TISSUE. Electronically Signed Gissell Morrow M.D. Gross Description Received in formalin labeled "tissue debridement abdominal wall abscess," is a 5.5 x 5.0 x 1.6 cm aggregate of wing-red fragments of necrotic skin and soft tissue. Staff Reporter sections are submitted in one cassette. /05/05/201705/05/2017
--- NOTE | 2017-05-06 14:19 | PN ---
Progress Note, Physician History of Present Illness: post op day 1 from i and d of abd wall abscess no complaints - Current Medication List Current Medications: Active Medications Acetaminophen (Tylenol -) 325 mg PO Q6H PRN PRN Reason: PAIN LEVEL 6-10 Last Admin: 05/06/17 13:14 Dose: 325 mg Amlodipine Besylate (Norvasc -) 10 mg PO DAILY [facility] Last Admin: 05/06/17 09:59 Dose: 10 mg Fentanyl (Sublimaze Injection -) 25 mcg IVPUSH [id number] PRN PRN Reason: PAIN-PACU ORDER X 4 DOSES ONLY Last Admin: 05/05/17 10:15 Dose: 25 mcg Furosemide (Lasix -) 40 mg PO DAILY [facility] Last Admin: 05/06/17 09:59 Dose: 40 mg Heparin Sodium (Porcine) (Heparin -) 5,000 unit SQ BID [facility] Last Admin: 05/06/17 10:09 Dose: 5,000 unit Lactated Ringer's (Lactated Ringers Solution) 1,000 mls @ 125 mls/hr IV ASDIR [facility] Last Admin: 05/06/17 10:40 Dose: 125 mls/hr Vancomycin HCl 1,250 mg/ (Dextrose) 250 mls @ 166.667 mls/hr IVPB BID@0200, 1400 [facility] PRN Reason: Protocol Last Admin: 05/06/17 13:15 Dose: 166.667 mls/hr Piperacillin Sod/Tazobactam (Sod 3.375 gm/ Dextrose) 100 mls @ 200 mls/hr IVPB Q6H-IV [facility] PRN Reason: Protocol Last Admin: 05/06/17 09:59 Dose: 200 mls/hr Lisinopril (Prinivil) 20 mg PO DAILY [facility] Last Admin: 05/06/17 09:59 Dose: 20 mg Losartan Potassium (Cozaar -) 50 mg PO DAILY [facility] Last Admin: 05/06/17 09:59 Dose: 50 mg Ondansetron HCl (Zofran Injection) 4 mg IVPUSH Q6H PRN PRN Reason: NAUSEA AND/OR VOMITING Oxycodone HCl (Roxicodone -) 10 mg PO Q6H PRN PRN Reason: PAIN LEVEL 6-10 Last Admin: 05/06/17 13:11 Dose: 10 mg Topiramate (Topamax -) 50 mg PO BID [facility] Last Admin: 05/06/17 10:08 Dose: 50 mg - Objective Vital Signs: Vital Signs Temperature 97.4 F L 05/06/17 06:00 Pulse Rate 83 05/06/17 06:00 Respiratory Rate 20 05/06/17 06:00 Blood Pressure 112/50 05/06/17 06:00 O2 Sat by Pulse Oximetry (%) 96 05/05/17 11:16 Constitutional: Yes: No Distress, Calm Cardiovascular: Yes: Regular Rate and Rhythm Respiratory: Yes: Regular, CTA Bilaterally Gastrointestinal: Yes: Normal Bowel Sounds, Soft Musculoskeletal: Yes: WNL Extremities: Yes: WNL Wound/Incision: Yes: Other (dressing wet) Neurological: Yes: Alert, Oriented Psychiatric: Yes: Alert, Oriented Labs: CBC, BMP 05/05/17 07:00 05/05/17 07:00 INR, PTT INR 1.24 (0.82-1.09) H 05/03/17 18:10 Assessment/Plan Problem List - Problems (1) Abdominal abscess Code(s): [id number] - (2) Cellulitis Code(s): L03.90 - CELLULITIS, UNSPECIFIED (3) HTN (hypertension) Code(s): I10 - ESSENTIAL (PRIMARY) HYPERTENSION (4) Morbid obesity Code(s): E66.01 - MORBID (SEVERE) OBESITY DUE TO EXCESS CALORIES (5) COPD (chronic obstructive pulmonary disease) Code(s): J44.9 - CHRONIC OBSTRUCTIVE PULMONARY DISEASE, UNSPECIFIED plan continue abx will change to oral abx tomorrow wound care will see the wound once we open the dsg
[2017-05-06] MEDS ORDERED: oxyCODONE HCL 5 MG TABLET PO ONE (17:00)
[2017-05-06] MEDS ORDERED: ACETAMINOPHEN 325 MG TABLET (FP) PO ONE (17:00)
--- NOTE | 2017-05-06 18:47 | PN ---
Progress Note (short form) - Note Progress Note: POD # 1 Afebrile, VSS Adominal wall wound clean with no new necrotic tissue, wound size about 11 x 5 cm and 5 cm deep with 4 cm undermining Wound irrigated with NS and packed with 2 inch iodoform strips and covered with sterile dressing A: doing well P: daily wound care with NS irrigation and iodoform packing D/C with NPWT (wound vac) Problem List - Problems (1) Abdominal abscess Code(s): [id number] -
--- NOTE | 2017-05-06 20:31 | PN ---
Progress Note, Physician - Current Medication List Current Medications: Active Medications Acetaminophen (Tylenol -) 325 mg PO Q6H PRN PRN Reason: PAIN LEVEL 6-10 Last Admin: 05/06/17 13:14 Dose: 325 mg Amlodipine Besylate (Norvasc -) 10 mg PO DAILY [facility] Last Admin: 05/06/17 09:59 Dose: 10 mg Fentanyl (Sublimaze Injection -) 25 mcg IVPUSH [id number] PRN PRN Reason: PAIN-PACU ORDER X 4 DOSES ONLY Last Admin: 05/05/17 10:15 Dose: 25 mcg Furosemide (Lasix -) 40 mg PO DAILY [facility] Last Admin: 05/06/17 09:59 Dose: 40 mg Heparin Sodium (Porcine) (Heparin -) 5,000 unit SQ BID [facility] Last Admin: 05/06/17 10:09 Dose: 5,000 unit Lactated Ringer's (Lactated Ringers Solution) 1,000 mls @ 125 mls/hr IV ASDIR [facility] Last Admin: 05/06/17 10:40 Dose: 125 mls/hr Vancomycin HCl 1,250 mg/ (Dextrose) 250 mls @ 166.667 mls/hr IVPB BID@0200, 1400 [facility] PRN Reason: Protocol Last Admin: 05/06/17 13:15 Dose: 166.667 mls/hr Piperacillin Sod/Tazobactam (Sod 3.375 gm/ Dextrose) 100 mls @ 200 mls/hr IVPB Q6H-IV [facility] PRN Reason: Protocol Last Admin: 05/06/17 15:41 Dose: 200 mls/hr Lisinopril (Prinivil) 20 mg PO DAILY [facility] Last Admin: 05/06/17 09:59 Dose: 20 mg Losartan Potassium (Cozaar -) 50 mg PO DAILY [facility] Last Admin: 05/06/17 09:59 Dose: 50 mg Ondansetron HCl (Zofran Injection) 4 mg IVPUSH Q6H PRN PRN Reason: NAUSEA AND/OR VOMITING Oxycodone HCl (Roxicodone -) 10 mg PO Q6H PRN PRN Reason: PAIN LEVEL 6-10 Last Admin: 05/06/17 13:11 Dose: 10 mg Topiramate (Topamax -) 50 mg PO BID [facility] Last Admin: 05/06/17 10:08 Dose: 50 mg - Objective Vital Signs: Vital Signs Temperature 98.4 F 05/06/17 14:53 Pulse Rate 78 05/06/17 14:53 Respiratory Rate 22 05/06/17 14:53 Blood Pressure 120/82 05/06/17 14:53 O2 Sat by Pulse Oximetry (%) 96 05/05/17 11:16 Labs: CBC, BMP 05/05/17 07:00 05/05/17 07:00 INR, PTT INR 1.24 (0.82-1.09) H 05/03/17 18:10 Problem List - Problems (1) Abdominal abscess Code(s): [id number] - (2) Cellulitis Code(s): L03.90 - CELLULITIS, UNSPECIFIED (3) HTN (hypertension) Code(s): I10 - ESSENTIAL (PRIMARY) HYPERTENSION (4) Morbid obesity Code(s): E66.01 - MORBID (SEVERE) OBESITY DUE TO EXCESS CALORIES (5) COPD (chronic obstructive pulmonary disease) Code(s): J44.9 - CHRONIC OBSTRUCTIVE PULMONARY DISEASE, UNSPECIFIED
[2017-05-07] MEDS: VANCOMYCIN 1,250 MG in DEXTROSE 5%-WATER - 250 ML IVPB SCH ×2 (01:27→14:08)
[2017-05-07] MEDS: PIPERACILLIN/TAZOB 3.375 GM 3.375 GM in DEXTROSE 5%-WATER - 100 ML IVPB SCH ×3 (03:27→16:28)
[2017-05-07] MEDS: oxyCODONE HCL 5 MG TABLET PO PRN ×3 (08:01→22:59)
[2017-05-07] MEDS: ACETAMINOPHEN 325 MG TABLET (FP) PO PRN ×3 (08:02→23:00)
[2017-05-07] MEDS: LACTATED RINGERS SOLUTION 1,000 ML IV SCH (10:00)
[2017-05-07] MEDS ORDERED: PT OWN MED DRAWER 7, Y5N ONE (10:08)
[2017-05-07] MEDS: TOPIRAMATE 25 MG TABLET (FP) PO SCH ×2 (10:10→22:59)
[2017-05-07] MEDS: FUROSEMIDE 40 MG TABLET (FP) PO SCH (10:11)
[2017-05-07] MEDS: amLODIPine BESYLATE 10 MG TABLET (FP) PO SCH (10:11)
[2017-05-07] MEDS: LOSARTAN POTASSIUM 50 MG TABLET (FP) PO SCH (10:11)
[2017-05-07] MEDS: HEPARIN NA (PORCINE) 5,000 UNITS/ML 1ML VIAL SQ SCH ×2 (10:13→22:58)
[2017-05-07] MEDS: LISINOPRIL 20 MG TABLET (FP) PO SCH (10:14)
--- NOTE | 2017-05-07 15:39 | PN ---
Progress Note, Physician History of Present Illness: stable surgical note noted wound cx results noted - Current Medication List Current Medications: Active Medications Acetaminophen (Tylenol -) 325 mg PO Q6H PRN PRN Reason: PAIN LEVEL 6-10 Last Admin: 05/07/17 08:02 Dose: 325 mg Amlodipine Besylate (Norvasc -) 10 mg PO [facility]ILY [facility] Last Admin: 05/07/17 10:11 Dose: 10 mg Fentanyl (Sublimaze Injection -) 25 mcg IVPUSH [id number] PRN PRN Reason: PAIN-PACU ORDER X 4 DOSES ONLY Last Admin: 05/05/17 10:15 Dose: 25 mcg Furosemide (Lasix -) 40 mg PO DAILY [facility] Last Admin: 05/07/17 10:11 Dose: 40 mg Heparin Sodium (Porcine) (Heparin -) 5,000 unit SQ BID [facility] Last Admin: 05/07/17 10:13 Dose: 5,000 unit Lactated Ringer's (Lactated Ringers Solution) 1,000 mls @ 125 mls/hr IV ASDIR [facility] Last Admin: 05/06/17 10:40 Dose: 125 mls/hr Vancomycin HCl 1,250 mg/ (Dextrose) 250 mls @ 166.667 mls/hr IVPB BID@0200, 1400 [facility] PRN Reason: Protocol Last Admin: 05/07/17 14:08 Dose: 166.667 mls/hr Piperacillin Sod/Tazobactam (Sod 3.375 gm/ Dextrose) 100 mls @ 200 mls/hr IVPB Q6H-IV [facility] PRN Reason: Protocol Last Admin: 05/07/17 10:10 Dose: 200 mls/hr Lisinopril (Prinivil) 20 mg PO DAILY [facility] Last Admin: 05/07/17 10:14 Dose: 20 mg Losartan Potassium (Cozaar -) 50 mg PO DAILY [facility] Last Admin: 05/07/17 10:11 Dose: 50 mg Ondansetron HCl (Zofran Injection) 4 mg IVPUSH Q6H PRN PRN Reason: NAUSEA AND/OR VOMITING Oxycodone HCl (Roxicodone -) 10 mg PO Q6H PRN PRN Reason: PAIN LEVEL 6-10 Last Admin: 05/07/17 08:01 Dose: 10 mg Topiramate (Topamax -) 50 mg PO BID [facility] Last Admin: 05/07/17 10:10 Dose: 50 mg - Objective Vital Signs: Vital Signs Temperature 97.9 F 05/07/17 14:24 Pulse Rate 79 05/07/17 14:24 Respiratory Rate 20 05/07/17 14:24 Blood Pressure 121/74 05/07/17 14:24 O2 Sat by Pulse Oximetry (%) 96 05/05/17 11:16 Constitutional: Yes: No Distress, Calm Cardiovascular: Yes: Regular Rate and Rhythm Respiratory: Yes: Regular, CTA Bilaterally Gastrointestinal: Yes: Normal Bowel Sounds, Soft Musculoskeletal: Yes: WNL Extremities: Yes: WNL Wound/Incision: Yes: Dressing Dry and Intact Neurological: Yes: Alert, Oriented Psychiatric: Yes: Alert, Oriented Labs: CBC, BMP 05/05/17 07:00 05/05/17 07:00 INR, PTT INR 1.24 (0.82-1.09) H 05/03/17 18:10 Assessment/Plan Problem List - Problems (1) Abdominal abscess Code(s): [id number] - (2) Cellulitis Code(s): L03.90 - CELLULITIS, UNSPECIFIED (3) HTN (hypertension) Code(s): I10 - ESSENTIAL (PRIMARY) HYPERTENSION (4) Morbid obesity Code(s): E66.01 - MORBID (SEVERE) OBESITY DUE TO EXCESS CALORIES (5) COPD (chronic obstructive pulmonary disease) Code(s): J44.9 - CHRONIC OBSTRUCTIVE PULMONARY DISEASE, UNSPECIFIED plan changed to oral abx wound care rest as per surgery
[2017-05-07] MEDS: AMOX TR/POT CLAV 875MG/125MG TABLETS (FP) PO SCH (19:33)
--- NOTE | 2017-05-07 23:22 | PN ---
Progress Note, Physician - Current Medication List Current Medications: Active Medications Acetaminophen (Tylenol -) 325 mg PO Q6H PRN PRN Reason: PAIN LEVEL 6-10 Last Admin: 05/07/17 23:00 Dose: 325 mg Amlodipine Besylate (Norvasc -) 10 mg PO DAILY [facility] Last Admin: 05/07/17 10:11 Dose: 10 mg Amoxicillin/Clavulanate Potassium (Augmentin - 875mg Tablet) 1 tab PO BID@0800, 1730 [facility] Last Admin: 05/07/17 19:33 Dose: 1 tab Fentanyl (Sublimaze Injection -) 25 mcg IVPUSH [id number] PRN PRN Reason: PAIN-PACU ORDER X 4 DOSES ONLY Last Admin: 05/05/17 10:15 Dose: 25 mcg Furosemide (Lasix -) 40 mg PO DAILY [facility] Last Admin: 05/07/17 10:11 Dose: 40 mg Heparin Sodium (Porcine) (Heparin -) 5,000 unit SQ BID [facility] Last Admin: 05/07/17 22:58 Dose: 5,000 unit Lisinopril (Prinivil) 20 mg PO DAILY [facility] Last Admin: 05/07/17 10:14 Dose: 20 mg Losartan Potassium (Cozaar -) 50 mg PO DAILY [facility] Last Admin: 05/07/17 10:11 Dose: 50 mg Ondansetron HCl (Zofran Injection) 4 mg IVPUSH Q6H PRN PRN Reason: NAUSEA AND/OR VOMITING Oxycodone HCl (Roxicodone -) 10 mg PO Q6H PRN PRN Reason: PAIN LEVEL 6-10 Last Admin: 05/07/17 22:59 Dose: 10 mg Topiramate (Topamax -) 50 mg PO BID [facility] Last Admin: 05/07/17 22:59 Dose: 50 mg - Objective Vital Signs: Vital Signs Temperature 98.2 F 05/07/17 21:00 Pulse Rate 74 05/07/17 21:00 Respiratory Rate 20 05/07/17 21:00 Blood Pressure 129/86 05/07/17 21:00 O2 Sat by Pulse Oximetry (%) 96 05/05/17 11:16 Labs: CBC, BMP 05/05/17 07:00 05/05/17 07:00 INR, PTT INR 1.24 (0.82-1.09) H 05/03/17 18:10 Problem List - Problems (1) Abdominal abscess Code(s): [id number] - (2) Cellulitis Code(s): L03.90 - CELLULITIS, UNSPECIFIED (3) HTN (hypertension) Code(s): I10 - ESSENTIAL (PRIMARY) HYPERTENSION (4) Morbid obesity Code(s): E66.01 - MORBID (SEVERE) OBESITY DUE TO EXCESS CALORIES (5) COPD (chronic obstructive pulmonary disease) Code(s): J44.9 - CHRONIC OBSTRUCTIVE PULMONARY DISEASE, UNSPECIFIED
[2017-05-08] MEDS: ACETAMINOPHEN 325 MG TABLET (FP) PO PRN ×2 (05:01→12:19)
[2017-05-08] MEDS: oxyCODONE HCL 5 MG TABLET PO PRN (05:02)
[2017-05-08] MEDS ORDERED: PT OWN MED DRAWER 7, Y5N ONE (09:16)
[2017-05-08 09:29] VITALS: BP 162/71; PULSE 95; TEMP 98
[2017-05-08] MEDS: LOSARTAN POTASSIUM 50 MG TABLET (FP) PO SCH (09:30)
[2017-05-08] MEDS: AMOX TR/POT CLAV 875MG/125MG TABLETS (FP) PO SCH ×2 (09:30→17:50)
[2017-05-08] MEDS: FUROSEMIDE 40 MG TABLET (FP) PO SCH (09:30)
[2017-05-08] MEDS: HEPARIN NA (PORCINE) 5,000 UNITS/ML 1ML VIAL SQ SCH (09:30)
[2017-05-08] MEDS: amLODIPine BESYLATE 10 MG TABLET (FP) PO SCH (09:30)
[2017-05-08] MEDS: LISINOPRIL 20 MG TABLET (FP) PO SCH (09:30)
[2017-05-08] MEDS: TOPIRAMATE 25 MG TABLET (FP) PO SCH (09:30)
[2017-05-08] MEDS ORDERED: oxyCODONE HCL 5 MG TABLET PO PRN (12:12)
--- NOTE | 2017-05-08 12:46 | PN ---
Progress Note, Physician History of Present Illness: doing well n o complaints wound looks good - Current Medication List Current Medications: Active Medications Acetaminophen (Tylenol -) 325 mg PO Q6H PRN PRN Reason: PAIN LEVEL 6-10 Last Admin: 05/08/17 12:19 Dose: 325 mg Amlodipine Besylate (Norvasc -) 10 mg PO DAILY [facility] Last Admin: 05/08/17 09:30 Dose: 10 mg Amoxicillin/Clavulanate Potassium (Augmentin - 875mg Tablet) 1 tab PO BID@0800, 1730 [facility] Last Admin: 05/08/17 09:30 Dose: 1 tab Fentanyl (Sublimaze Injection -) 25 mcg IVPUSH [id number] PRN PRN Reason: PAIN-PACU ORDER X 4 DOSES ONLY Last Admin: 05/05/17 10:15 Dose: 25 mcg Furosemide (Lasix -) 40 mg PO DAILY [facility] Last Admin: 05/08/17 09:30 Dose: 40 mg Heparin Sodium (Porcine) (Heparin -) 5,000 unit SQ BID [facility] Last Admin: 05/08/17 09:30 Dose: 5,000 unit Lisinopril (Prinivil) 20 mg PO DAILY [facility] Last Admin: 05/08/17 09:30 Dose: 20 mg Losartan Potassium (Cozaar -) 50 mg PO DAILY [facility] Last Admin: 05/08/17 09:30 Dose: 50 mg Ondansetron HCl (Zofran Injection) 4 mg IVPUSH Q6H PRN PRN Reason: NAUSEA AND/OR VOMITING Oxycodone HCl (Roxicodone -) 5 mg PO Q12H PRN PRN Reason: PAIN SCALE 6-10 Last Admin: 05/08/17 12:20 Dose: 5 mg Topiramate (Topamax -) 50 mg PO BID [facility] Last Admin: 05/08/17 09:30 Dose: 50 mg - Objective Vital Signs: Vital Signs Temperature 98 F 05/08/17 09:28 Pulse Rate 95 H 05/08/17 09:28 Respiratory Rate 20 05/08/17 09:28 Blood Pressure 162/71 05/08/17 09:28 O2 Sat by Pulse Oximetry (%) 96 05/05/17 11:16 Constitutional: Yes: No Distress, Calm, Obese HENT: Yes: Atraumatic, Normocephalic Cardiovascular: Yes: Regular Rate and Rhythm Respiratory: Yes: Regular, CTA Bilaterally Gastrointestinal: Yes: Normal Bowel Sounds, Soft Wound/Incision: Yes: Dressing Dry and Intact Neurological: Yes: Alert, Oriented Psychiatric: Yes: Alert, Oriented Labs: CBC, BMP 05/05/17 07:00 05/05/17 07:00 INR, PTT INR 1.24 (0.82-1.09) H 05/03/17 18:10 Assessment/Plan Problem List - Problems (1) Abdominal abscess Code(s): [id number] - (2) Cellulitis Code(s): L03.90 - CELLULITIS, UNSPECIFIED (3) HTN (hypertension) Code(s): I10 - ESSENTIAL (PRIMARY) HYPERTENSION (4) Morbid obesity Code(s): E66.01 - MORBID (SEVERE) OBESITY DUE TO EXCESS CALORIES (5) COPD (chronic obstructive pulmonary disease) Code(s): J44.9 - CHRONIC OBSTRUCTIVE PULMONARY DISEASE, UNSPECIFIED plan changed to oral abx wound care rest as per surgery awaiting for wound vac to be placed
== END 2017-05-08 21:00 | disposition home health service (06) | DRG 344 ==
LOC: JER 17:07 → JERBED 18:18 → J5S 21:37
PROVIDERS: ADMIT Internal Medicine; ATTEND Internal Medicine
PROC: 0W9F0ZX Drainage of Abdominal Wall, Open Approach, Diagnostic (ICD-10-PCS; 2017-05-05)
PROC: 0JB80ZZ Excision of Abdomen Subcutaneous Tissue and Fascia, Open Approach (ICD-10-PCS; principal; 2017-05-05 12:00)
DX: M72.6 Necrotizing fasciitis (principal); L02.211 Cutaneous abscess of abdominal wall; I10 Essential (primary) hypertension; J44.9 Chronic obstructive pulmonary disease, unspecified; E66.01 Morbid (severe) obesity due to excess calories; Z68.43 Body mass index [BMI] 50.0-59.9, adult
CPT/HCPCS: 36415; 71045-TC; 74176-TC; 80053; 81003; 82550; 82553; 82803; 83605; 84484; 85025; 85610; 85730; 87040; 87070; 87077; 87081; 87086; 87205; 87491; 87591; 88304-TC; 93005; 93010; 94760; 99284-25; J1644

== ENCOUNTER 2018-07-22 07:56 | Emergency (ER) | payer OTHER ==
[2018-07-22 08:12] VITALS: TEMP 98.1; BMI 60.3
[2018-07-22] MEDS ORDERED: traMADol HCL 50 MG TABLET PO ONE (08:32)
--- NOTE | 2018-07-22 08:32 | PDOC ---
History of Present Illness - General Chief Complaint: Pain Stated Complaint: LEFT LEG SWELLING X 2 WEEKS, HIGH BLOOD PRESSURE Time Seen by Provider: 07/22/18 08:25 History Source: Patient - History of Present Illness Lower Extremity Pain Location: left: other (L thigh) Past History - Past Medical History Allergies/Adverse Reactions: Allergies Allergy/AdvReac Type Severity Reaction Status Date / Time tree nut Allergy Severe Hives Verified 07/22/18 08:13 No Known Drug Allergies Allergy Verified 07/22/18 08:13 fish Allergy Severe Hives Uncoded 07/22/18 08:13 Home Medications: Ambulatory Orders Rizatriptan Benzoate [Maxalt] 10 mg PO PRN #0 tablet 10/30/11 Amlodipine Besylate [Norvasc -] 10 mg PO DAILY 06/23/12 Benazepril HCl 20 mg PO DAILY 06/23/12 Albuterol 0.083% Nebulizer Suellen [Ventolin 0.083% Nebulizer Soln -] 1 neb NEB Q4H PRN 10/31/15 Albuterol Sulfate Inhaler - [Ventolin HFA Inhaler -] 2 inh PO Q4H PRN 10/31/15 Biotin 1 mg PO BID 10/31/15 Cyclobenzaprine HCl [Flexeril -] 5 mg PO TID PRN 10/31/15 Losartan Potassium [Cozaar -] 50 mg PO DAILY 10/31/15 Topiramate 50 mg PO BID 10/31/15 Oxycodone HCl/Acetaminophen [Percocet 5-325 mg Tablet] 1 - 2 tab PO Q6H #20 tab MDD 4 01/04/16 Furosemide [Lasix] 40 mg PO DAILY 05/03/17 Acetaminophen [Tylenol .Regular Strength -] 325 mg PO Q6H PRN #90 tablet Amox-Tr/K Cl [Augmentin 875-125mg Tablet -] 1 tab PO BID@0800,1730 #20 tablet Anemia: Yes Asthma: Yes (USES INHALERS) Cancer: No Cardiac Disorders: No CVA: No COPD: Yes CHF: No Dementia: No Diabetes: No GI Disorders: No Disorders: No HTN: Yes Hypercholesterolemia: No Liver Disease: No Seizures: No Thyroid Disease: No - Surgical History Abdominal Surgery: Yes (GASTRIC BY-PASS 2000) Appendectomy: No Cardiac Surgery: No Cholecystectomy: No Lung Surgery: No Neurologic Surgery: No Orthopedic Surgery: No - Immunization History Td Vaccination: Yes TDAP Vaccination: Yes Immunization Up to Date: Yes - Suicide/Smoking/Psychosocial Hx Smoking Status: No Smoking History: Never smoked Years of Tobacco Use: 0 Have you smoked in the past 12 months: No Number of Cigarettes Smoked Daily: 0 Cigars Per Day: 0 Information on smoking cessation initiated: No Hx Alcohol Use: No Drug/Substance Use Hx: No Substance Use Type: None Hx Substance Use Treatment: No Review of Systems - Review of Systems Constitutional: No: Chills, Fever Respiratory: No: Shortness of Breath Cardiac (ROS): No: Chest Pain ABD/GI: No: Nausea, Vomiting Musculoskeletal: No: Joint Pain, Joint Swelling Neurological: Yes: Numbness. No: Headache, Tingling, Weakness *Physical Exam - Vital Signs Last Vital Signs Temp Pulse Resp BP Pulse Ox 98.1 F 95 H 17 190/110 H 98 07/22/18 08:06 07/22/18 08:06 07/22/18 08:06 07/22/18 08:06 07/22/18 08:06 - Physical Exam General Appearance: Yes: Appropriately Dressed. No: Apparent Distress HEENT: positive: Normal Voice Neck: positive: Supple Respiratory/Chest: negative: Respiratory Distress Extremity: positive: Normal Inspection, Normal Range of Motion. negative: Tender, Swelling Integumentary: positive: Dry, Warm Neurologic: positive: Fully Oriented, Alert, Normal Mood/Affect, Numbness (? decreased sensation to upper, outer thigh, pedal pulses intact). negative: Motor Strength 5/5 Medical Decision Making - Medical Decision Making 07/22/18 08:27 53 yo morbidly obesed female, w/ h/o HTN, migraines, here w/ burning pain and numbness to upper, outer L thigh x 2 weeks, constant. No back pain or LE weakness. No trauma. No h/o same. Seen by her doctor and prescribed gabapentin and a muscle relaxant with no relief. States the only thing that has been relieving her pain is tramadol which she had at home. States she is here today because family members told her she might need an MRI and an x-ray. See exam Atraumatic pain to L thigh, possible meralgia paresthetica given burning and numbness w/ morbid obesity No obvious RF for DVT/PE Prescribed gabapentin and flexeril w/ no relief Relieved w/ tramadol Here requesting imaging No indication for imaging at this time -dc w/ pain control and neuro f/u Elevated BP BP 190/110 Non-compliant w/ meds Asx but EKG done in triage and unremarkable as d/w ED attg -will give dose of home meds and reassess 07/22/18 09:34 BP remains elevated despite home meds. Patient remains asymptomatic. Will repeat blood pressure in an hour as discussed with ED attending 07/22/18 11:17 Pt eloped pending reassessment of her blood pressure *DC/Admit/Observation/Transfer Diagnosis at time of Disposition: Elevated blood pressure reading Thigh pain Qualifiers: Laterality: left Qualified Code(s): M79.652 - Pain in left thigh - Discharge Dispostion Disposition: ELOPED Condition at time of disposition: Improved - Referrals - Patient Instructions Printed Discharge Instructions: Neuropathic Pain Additional Instructions: The cause of your thigh pain is unclear at this time, but might be related to a nerve issue. Please follow-up with your neurologist as discussed for further evaluation In the meantime, take tramadol as needed. Your blood pressure was significantly elevated here. In order to prevent complications such as a heart attack, stroke and kidney issues, etc. You need to take your medication. Continue to follow-up with your doctor - Post Discharge Activity
[2018-07-22] MEDS ORDERED: LOSARTAN POTASSIUM 50 MG TABLET (FP) PO ONE (08:34)
[2018-07-22] MEDS ORDERED: amLODIPine BESYLATE 10 MG TABLET (FP) PO ONE (08:34)
[2018-07-22 10:14] VITALS: BP 180/130; PULSE 92
--- NOTE | 2018-07-22 10:16 | PDOC ---
*Physical Exam - Vital Signs Last Vital Signs Temp Pulse Resp BP Pulse Ox 98.1 F 95 H 17 190/110 H 98 07/22/18 08:06 07/22/18 08:06 07/22/18 08:06 07/22/18 08:06 07/22/18 08:06 - Physical Exam General Appearance: Yes: Nourished Respiratory/Chest: positive: Lungs Clear, Normal Breath Sounds Cardiovascular: positive: Regular Rhythm, Regular Rate, S1, S2 Gastrointestinal/Abdominal: positive: Soft, Other (obese) Musculoskeletal: positive: Normal Inspection Extremity: positive: Normal Capillary Refill, Normal Inspection Integumentary: positive: Normal Color, Dry, Warm Neurologic: positive: Fully Oriented, Alert, Normal Mood/Affect, Normal Response , Motor Strength 5/5, Other (mild decreased sensation left upper lat thigh) Heart Score/ECG Review #1 ECG reviewed & interpreted by me at: 10:22 General ECG Interpretation: Sinus Rhythm, Normal Rate, Normal Intervals, No acute ischemic changes ED Treatment Course - Medications Given in the ED: ED Medications Discontinued Medications Generic Name Dose Route Start Last Admin Trade Name Kishan PRN Reason Stop Dose Admin Amlodipine Besylate 10 mg 07/22/18 08:34 07/22/18 08:57 Norvasc - PO 07/22/18 08:35 10 mg ONCE ONE Administration Losartan Potassium 50 mg 07/22/18 08:34 07/22/18 08:57 Cozaar - PO 07/22/18 08:35 50 mg ONCE ONE Administration Tramadol HCl 50 mg 07/22/18 08:32 07/22/18 08:57 Ultram - PO 07/22/18 08:33 50 mg ONCE ONE Administration Medical Decision Making - Medical Decision Making 07/22/18 10:12 53 yo F with h/o HTN, obesity, here because d/o left hip pain. pt states she is here in emergency room because was here with a family member and decided to get it checked out. has been having pain left hip for months. did see her pcp dr Bolton, who referred her for an outpatient MRI which she has not scheduled yet. denies new weakness. pain is worse with walking. she does describe some low back pain and numbness over left leg . she has had that for several weeks. was started on gabapentin by dr bolton no relief. states she has not taken her medications for several days. no cp no sob. no headache no blurry vision. no bowel or bladder incontinence. 07/22/18 10:14 on exam pt heart and lung exam normal. abd soft obese legs no edema. 5/5 lower ext strength . mild decreased sensation light touch left lateral thigh. no saddle anesthesia. differential djd of hip due to obesity, avn, radicular pain most likely. pt will need to follow up outpt MRI as directed one week ago by pcp. pt bp elevated as not compliant with meds for several days. given home bp meds. xray left hip ordered. 07/22/18 10:23 pt seen and examined in conjunction with MERLY Renner, agree with assessment in plan. *DC/Admit/Observation/Transfer Diagnosis at time of Disposition: Elevated blood pressure reading Thigh pain Qualifiers: Laterality: left Qualified Code(s): M79.652 - Pain in left thigh - Discharge Dispostion Condition at time of disposition: Improved - Prescriptions Prescriptions: Tramadol HCl 50 mg PO Q6H #15 tablet MDD 200mg - Referrals - Patient Instructions Printed Discharge Instructions: Neuropathic Pain Additional Instructions: The cause of your thigh pain is unclear at this time, but might be related to a nerve issue. Please follow-up with your neurologist as discussed for further evaluation In the meantime, take tramadol as needed. Your blood pressure was significantly elevated here. In order to prevent complications such as a heart attack, stroke and kidney issues, etc. You need to take your medication. Continue to follow-up with your doctor - Post Discharge Activity
--- NOTE | 2018-07-23 12:09 | EKG ---
Test Reason : Blood Pressure : / mmHG Vent. Rate : 091 BPM Atrial Rate : 091 BPM P-R Int : 166 ms QRS Dur : 080 ms QT Int : 358 ms P-R-T Axes : 069 -06 053 degrees QTc Int : 440 ms POOR DATA QUALITY, INTERPRETATION MAY BE ADVERSELY AFFECTED NORMAL SINUS RHYTHM MODERATE VOLTAGE CRITERIA FOR LVH, MAY BE NORMAL VARIANT BORDERLINE ECG WHEN COMPARED WITH ECG OF 03-MAY-2017 19:15, BORDERLINE CRITERIA FOR ANTERIOR INFARCT ARE NO LONGER PRESENT Confirmed by DARIAN BURGER MD ([id number]) on 07/23/2018 12:09:07 PM Referred By: Confirmed By:DARIAN BURGER MD
== END 2018-07-22 11:21 | disposition left against medical advice (07) ==
LOC: JER 07:56
DX: M79.652 Pain in left thigh (principal); Z01.31 Encounter for examination of blood pressure with abnormal findings
CPT/HCPCS: 93005; 93010; 99281-25

== ENCOUNTER 2023-10-08 19:01 | Emergency (ER) | payer OTHER ==
[2023-10-08 19:07] VITALS: BP 126/85; PULSE 83; RESP 18; TEMP 98; BMI 51.2
[2023-10-08] MEDS ORDERED: LIDOCAINE 4% PATCH TP ONE (20:34)
[2023-10-08] MEDS ORDERED: ACETAMINOPHEN 500 MG TABLET (FP) ONE (20:34)
[2023-10-08] MEDS: ACETAMINOPHEN 500 MG TABLET (FP) PO ONE (20:44)
[2023-10-08] MEDS: LIDOCAINE 4% PATCH TP ONE (20:45)
[2023-10-08] MEDS ORDERED: LIDOCAINE PATCH REMOVAL MC SCH (22:00)
== END 2023-10-08 22:25 | disposition home or self-care (01) ==
LOC: JERFT 19:01
DX: M54.2 Cervicalgia (principal); M25.561 Pain in right knee; R07.89 Other chest pain; V49.40XA Driver injured in collision with unspecified motor vehicles in traffic accident, initial encounter; Y92.410 Unspecified street and highway as the place of occurrence of the external cause
CPT/HCPCS: 71046-TC-FY; 71111-TC-FY; 72125-TC; 73562-TC-RT-FY; 99284-25